=== PATIENT | male | born 1985 | race American Indian/Alaskan Native ===

== ENCOUNTER 2019-08-14 08:11 | Emergency (ER) | payer SELFPAY ==
[2019-08-14 08:19] VITALS: BP 140/85
--- NOTE | 2019-08-14 10:16 | Emergency Department Report ---
ED Back Pain/Injury HPI - General Chief Complaint: Back Pain/Injury Stated Complaint: LOWER BACK PAIN, HEADACHE Time Seen by Provider: 08/14/19 10:11 Source: patient Limitations: No Limitations - History of Present Illness Initial Comments: Mr. Preston is a healthy 34-year-old male without significant past medical history who presents with left lower back pain now headache and subjective fever and poor appetite for the past several days. Gradual onset of symptoms. Pain in the back is worse with certain positions. He is unable to bend down and touch his toes without pain. Ibuprofen 800 mg tablets are provided a few hours of relief. Multiple sick contacts at work. Dull headache. He has nausea prevents him from eating. MD Complaint: back pain -: Gradual, days(s) (3) Similar Symptoms Previously: No Place: other (no known injury) Severity: moderate Severity scale (0 -10): 7 Quality: sharp, aching Consistency: constant Improves With: other (Ibuprofen) Worsens With: movement Associated Symptoms: headaches, loss of appetite - Related Data Previous Rx's Medication Instructions Recorded Last Taken Type Ibuprofen [Motrin 800 MG tab] 800 mg PO Q8HR PRN #20 tablet 08/14/19 Unknown Rx Methocarbamol [Robaxin] 500 mg PO Q6H PRN #15 tablet 08/14/19 Unknown Rx Oseltamivir [Tamiflu] 75 mg PO BID 5 Days #10 cap 08/14/19 Unknown Rx Allergies Allergy/AdvReac Type Severity Reaction Status Date / Time No Known Allergies Allergy Unverified 08/14/19 08:17 ED Review of Systems ROS: Stated complaint: LOWER BACK PAIN, HEADACHE Other details as noted in HPI Comment: All other systems reviewed and negative Constitutional: fever, malaise Cardiovascular: denies: chest pain Gastrointestinal: nausea. denies: abdominal pain Musculoskeletal: back pain ED Past Medical Hx - Past Medical History Previous Medical History?: No - Surgical History Past Surgical History?: Yes Additional Surgical History: eye surgery - Social History Smoking Status: Never Smoker Substance Use Type: Alcohol - Medications Home Medications: Home Medications Medication Instructions Recorded Confirmed Last Taken Type Ibuprofen [Motrin 800 MG tab] 800 mg PO Q8HR PRN #20 tablet 08/14/19 Unknown Rx Methocarbamol [Robaxin] 500 mg PO Q6H PRN #15 tablet 08/14/19 Unknown Rx Oseltamivir [Tamiflu] 75 mg PO BID 5 Days #10 cap 08/14/19 Unknown Rx ED Physical Exam - General Limitations: No Limitations General appearance: alert, in no apparent distress, other (moves briskly easily from laying sitting to standing positions) - Head Head exam: Present: atraumatic, normocephalic - Eye Eye exam: Present: normal appearance - ENT ENT exam: Present: mucous membranes moist - Neck Neck exam: Present: normal inspection, full ROM. Absent: tenderness, meningismus - Respiratory Respiratory exam: Present: normal lung sounds bilaterally. Absent: respiratory distress, wheezes, rales, rhonchi - Cardiovascular Cardiovascular Exam: Present: regular rate, normal rhythm, normal heart sounds. Absent: systolic murmur, diastolic murmur, rubs, gallop - GI/Abdominal GI/Abdominal exam: Present: soft, normal bowel sounds. Absent: distended, tenderness, guarding, rebound - Rectal Rectal exam: Present: deferred - Extremities Exam Extremities exam: Present: normal inspection - Back Exam Back exam: Present: normal inspection, full ROM, muscle spasm. Absent: tenderness, CVA tenderness (R), CVA tenderness (L), paraspinal tenderness, vertebral tenderness - Neurological Exam Neurological exam: Present: alert, oriented X3, normal gait - Psychiatric Psychiatric exam: Present: normal affect, normal mood - Skin Skin exam: Present: warm, dry, intact, normal color. Absent: rash ED Course Vital Signs 08/14/19 08:17 Temperature 99.4 F Pulse Rate 93 H Respiratory 16 Rate Blood Pressure 140/85 O2 Sat by Pulse 99 Oximetry ED Medical Decision Making - Medical Decision Making Mr. Preston is a healthy 34-year-old male presents with left lower back pain as well as headaches subjective fever for appetite nausea. I suspect the back pain is musculoskeletal lower strain with the characteristics of positional pain. I suspect early influenza. Prescribed Tamiflu. Prescribed ibuprofen and methocarbamol. No red flags of back pain including high fever, drug use, direct trauma. No bowel or bladder incontinence. Critical care attestation.: If time is entered above; I have spent that time in minutes in the direct care of this critically ill patient, excluding procedure time. ED Disposition Clinical Impression: Back pain, Influenza Disposition: TO HOME OR SELFCARE Is pt being admited?: No Does the pt Need Aspirin: No Condition: Stable Instructions: Influenza (ED), Low Back Strain (ED) Prescriptions: Ibuprofen [Motrin 800 MG tab] 800 mg PO Q8HR PRN #20 tablet PRN Reason: Pain , Severe (7-10) Methocarbamol [Robaxin] 500 mg PO Q6H PRN #15 tablet PRN Reason: muscle relaxant Oseltamivir [Tamiflu] 75 mg PO BID 5 Days #10 cap Referrals: CHADWICK NELSON MD [Staff Physician] - 3-5 Days Forms: Work/School Release Form(ED)
== END 2019-08-14 10:37 | disposition home or self-care (01) ==
LOC: ED 08:11
DX: M54.5 Low back pain (principal); J11.1 Influenza due to unidentified influenza virus with other respiratory manifestations; Z79.1 Long term (current) use of non-steroidal anti-inflammatories (NSAID); Z79.899 Other long term (current) drug therapy
CPT/HCPCS: 99282